=== PATIENT | female | born 1985 | race Caucasian/White ===

== ENCOUNTER 2023-07-16 03:52 | Emergency (ER) | payer BC ==
[2023-07-16 04:02] VITALS: BP 136/52; PULSE 76
[2023-07-16] MEDS: Acetaminophen 325 MG Tab PO ONE (04:15)
[2023-07-16] MEDS: Acetaminophen/HYDROcodone 325-5 MG Tab PO ONE (04:17)
== END 2023-07-16 04:57 | disposition home or self-care (01) ==
LOC: MW.ED 03:52
DX: S52.122A Displaced fracture of head of left radius, initial encounter for closed fracture (principal); E66.9 Obesity, unspecified; Z88.2 Allergy status to sulfonamides; Z88.8 Allergy status to other drugs, medicaments and biological substances; Z79.899 Other long term (current) drug therapy; Z68.32 Body mass index [BMI] 32.0-32.9, adult; W01.0XXA Fall on same level from slipping, tripping and stumbling without subsequent striking against object, initial encounter; Y93.22 Activity, ice hockey
CPT/HCPCS: 73080; 99283; A9270

== ENCOUNTER 2023-11-11 13:08 | Emergency (ER) | payer BC ==
[2023-11-11] MEDS: Acetaminophen 500 MG Tab PO ONE (14:04)
[2023-11-11] MEDS: Diazepam 2 MG Tab PO ONE (14:04)
[2023-11-11] MEDS: Ketorolac 30 MG/ML SDV IM ONE (14:04)
[2023-11-11] MEDS: Lidocaine 4% 1 each Patch TOP ONE (14:05)
[2023-11-11 14:45] VITALS: BP 111/70; PULSE 70
== END 2023-11-11 14:46 | disposition home or self-care (01) ==
LOC: MW.ED 13:08
DX: M54.50 Low back pain, unspecified (principal); E66.9 Obesity, unspecified; Z88.2 Allergy status to sulfonamides; Z88.8 Allergy status to other drugs, medicaments and biological substances; Z79.899 Other long term (current) drug therapy; Z75.8 Other problems related to medical facilities and other health care; Z68.32 Body mass index [BMI] 32.0-32.9, adult
CPT/HCPCS: 96372; 99283; A9270; J1885